=== PATIENT | male | born 1960 | race Caucasian/White ===

== ENCOUNTER 2016-10-08 00:25 | Inpatient (IN) | payer OTHER ==
[~2016-10-08] VITALS: Ht 180.3 cm; Wt 94.0 kg
[2016-10-08 01:40] LABS: PLATELET COUNT 230 x10^3mcL (130-400); RED CELL DISTRIBUTION WIDTH 12.7 % (11.5-14.5)
[2016-10-08 01:53] LABS: CALCIUM 8.9 mg/dL (8.5-10.1); CARBON DIOXIDE 30.8 mmol/L (21-32); CHLORIDE SERUM 104 mmol/L (98-107); CREATININE SERUM 0.9 mg/dL (0.7-1.3); GFR1 > 60 mL/min; GLUCOSE SERUM 125 mg/dL (74-106); POTASSIUM SERUM 3.8 mmol/L (3.5-5.1); SODIUM SERUM 141 mmol/L (136-145)
[2016-10-08 01:55] LABS: BASOPHIL % 2.5 % (0-2)
[2016-10-08 01:57] LABS: ALBUMIN 3.9 g/dL (3.4-5.0); ALKALINE PHOSPHATASE 107 U/L (46-116); ALT/SGPT 25 U/L (16-63); AMYLASE 42 U/L (25-115); AST/SGOT 56 U/L (15-37); BILIRUBIN TOTAL 0.41 mg/dL (0.20-1.00); LIPASE 130 IU/L (73-393); TOTAL PROTEIN, SERUM 7.1 g/dL (6.4-8.2)
[2016-10-08] MEDS ORDERED: METFORMIN500 M1 PO (03:56)
[2016-10-08 04:21] LABS: CHOLESTEROL/HDL RATIO 2.8; PHOSPHOROUS 3.8 mg/dL (2.5-4.9)
[2016-10-08 04:26] LABS: FREE T4 1.12 ng/dL (0.76-1.46); FREE THYROXINE INDEX 2.6 ug/dL (1.4-4.5); T4(THYROXINE) 7.7 ug/dL (4.7-13.3)
[2016-10-08 05:41] LABS: T3 TOTAL 1.26 ng/mL
[2016-10-08 07:44] LABS: UA SPECIFIC GRAVITY 1.025 (1.005-1.035); microscopic required? YES; urine erythrocyte NEGATIVE (NEGATIVE)
[2016-10-08 07:56] VITALS: BP 126/75
[2016-10-08 08:00] LABS: AMPHETAMINE QUAL UR NONE DETECTED (NEG <=1000)
[2016-10-08 10:24] VITALS: BP 107/71
[2016-10-08 18:57] VITALS: BP 112/70
[2016-10-08 22:26] VITALS: BP 116/72
[2016-10-09 05:59] VITALS: BP 117/79
[2016-10-09 06:34] LABS: BASOPHIL % 0.3 % (0-2); PLATELET COUNT 217 x10^3mcL (130-400); RED CELL DISTRIBUTION WIDTH 13.6 % (11.5-14.5)
[2016-10-09 06:40] LABS: CALCIUM 9.1 mg/dL (8.5-10.1); CARBON DIOXIDE 26.8 mmol/L (21-32); CHLORIDE SERUM 105 mmol/L (98-107); CREATININE SERUM 0.9 mg/dL (0.7-1.3); GFR1 > 60 mL/min; GLUCOSE SERUM 150 mg/dL (74-106); POTASSIUM SERUM 4.5 mmol/L (3.5-5.1); SODIUM SERUM 141 mmol/L (136-145)
[2016-10-09 07:10] VITALS: BP 122/78
[2016-10-09 15:03] VITALS: BP 131/76
[2016-10-09 17:53] VITALS: BP 137/83
[2016-10-09 20:30] VITALS: BP 126/68
[2016-10-09 22:32] VITALS: BP 118/71
[2016-10-10 06:11] VITALS: BP 117/69
[2016-10-10 06:14] LABS: BASOPHIL % 0.3 % (0-2); PLATELET COUNT 189 x10^3mcL (130-400); RED CELL DISTRIBUTION WIDTH 13.4 % (11.5-14.5)
[2016-10-10 06:38] LABS: CALCIUM 8.1 mg/dL (8.5-10.1); CARBON DIOXIDE 26.7 mmol/L (21-32); CHLORIDE SERUM 108 mmol/L (98-107); CREATININE SERUM 0.9 mg/dL (0.7-1.3); GFR1 > 60 mL/min; GLUCOSE SERUM 128 mg/dL (74-106); MAGNESIUM 1.9 mg/dL (1.8-2.4); PHOSPHOROUS 3.2 mg/dL (2.5-4.9); POTASSIUM SERUM 3.9 mmol/L (3.5-5.1); SODIUM SERUM 141 mmol/L (136-145)
[2016-10-10 10:23] VITALS: BP 117/69
[2016-10-10] MEDS ORDERED: IPRATROPIUM BROM3 M2 HHN (18:13)
[2016-10-10] MEDS ORDERED: ALBUD HHN (18:13)
[2016-10-10] MEDS ORDERED: BG MC (18:14)
[2016-10-10] MEDS ORDERED: HEP5I SC (18:14)
[2016-10-10] MEDS ORDERED: MOR2I IV (18:14)
[2016-10-10] MEDS ORDERED: HUMULIN R100 U/1 M1 SC (18:15)
[2016-10-10] MEDS ORDERED: DEXPF IV (18:15)
[2016-10-10] MEDS ORDERED: PRI20 PO (18:15)
[2016-10-10] MEDS ORDERED: ZOFI IV (18:15)
[2016-10-10] MEDS ORDERED: LEV500PM IV (18:22)
[2016-10-10] MEDS ORDERED: FLA500I IV (18:23)
[2016-10-10 18:24] VITALS: BP 129/76
[2016-10-10] MEDS ORDERED: LAC PO (18:26)
[2016-10-10 18:46] VITALS: BP 129/76
== END 2016-10-10 20:25 | disposition short-term general hospital (02) | DRG 344 ==
LOC: ED 00:25 → DU 03:44 → MU 03:44 → DU 07:35 → MU 16:00
PROVIDERS: Emergency Medicine; Family Medicine; Surgery; ADMIT Family Medicine
PROC: 0D9A0ZZ Drainage of Jejunum, Open Approach (ICD-10-PCS; principal; 2016-10-09 09:00)
DX: K55.9 Vascular disorder of intestine, unspecified (principal); N17.0 Acute kidney failure with tubular necrosis; K56.69 Other intestinal obstruction; E44.0 Moderate protein-calorie malnutrition; D68.69 Other thrombophilia; K59.8 Other specified functional intestinal disorders; E11.9 Type 2 diabetes mellitus without complications; Z79.84 Long term (current) use of oral hypoglycemic drugs; J45.909 Unspecified asthma, uncomplicated; R80.8 Other proteinuria; Z68.28 Body mass index [BMI] 28.0-28.9, adult; K76.0 Fatty (change of) liver, not elsewhere classified; I77.1 Stricture of artery
CPT/HCPCS: 80307; 83880; 84439; 94150; 97530-GP; J0330; J1170; J1644; J1720; J1885; J1956; J2250; J2270; J2405; J3010; J3490; J7030; Q0092; Q9967